=== PATIENT | male | born 1990 | race African-American/Black ===

== ENCOUNTER 2021-04-30 23:28 | Emergency (ER) | payer OTHER ==
[2021-04-30 23:34] VITALS: BP 126/77; PULSE 87; TEMP 98.2; BMI 33.4
== END 2021-05-01 01:04 | disposition home or self-care (01) ==
LOC: JER 23:28
DX: Z11.52 Encounter for screening for COVID-19 (principal)
CPT/HCPCS: 99281-25; C9803; U0003; U0005